=== PATIENT | female | born 1980 | race Caucasian/White ===

== ENCOUNTER 2017-09-19 01:54 | Emergency (ER) | payer SELFPAY ==
[2017-09-19 02:13] VITALS: RESP 17; O2SAT 98
[2017-09-19] MEDS ORDERED: Sodium Chloride 0.9% 1,000 ML IV STA (02:15)
--- NOTE | 2017-09-19 02:19 | ED PDOC ---
Arrival/HPI - General Chief Complaint: Dizziness/Lightheaded Time Seen by Provider: 09/19/17 01:56 Historian: Patient - History of Present Illness Narrative History of Present Illness (Text): 09/19/17 02:15 Tara Ramirez is a 36 year old female, whose past medical history includes anemia on Feosol, who presents to the Emergency department complaining of vomiting. Patient states she has been experiencing abdominal cramping with associated nausea, vomiting, and diarrhea, since yesterday evening. Patient states she took Zofran, but denies any significant relief. Patient denies any fever, chills, chest pain, shortness of breath, urinary symptoms, back pain, neck pain, headache, dizziness, or any other complaints. Time/Duration: Other (yesterday) Symptom Onset: Gradual Symptom Course: Unchanged Activities at Onset: Light Context: Home Past Medical History - Provider Review Nursing Documentation Reviewed: Yes - Past Medical History Past Medical History: No Previous - Cardiac Hx Cardiac Disorders: No - Pulmonary Hx Respiratory Disorders: No - Neurological Hx Neurological Disorder: No - HEENT Hx HEENT Disorder: No - Renal Hx Renal Disorder: No - Endocrine/Metabolic Hx Endocrine Disorders: No Hx Diabetes Mellitus Type 2: Yes - Hematological/Oncological Hx Anemia: Yes - Integumentary Hx Dermatological Disorder: No - Musculoskeletal/Rheumatological Hx Musculoskeletal Disorders: No Hx Falls: No - Gastrointestinal Hx Gastrointestinal Disorders: No - Genitourinary/Gynecological Hx Genitourinary Disorders: No - Psychiatric Hx Psychophysiologic Disorder: No Hx Emotional Abuse: No Hx Physical Abuse: No Hx Substance Use: No - Past Surgical History Past Surgical History: No Previous - Anesthesia Hx Anesthesia: No - Suicidal Assessment Feels Threatened In Home Enviroment: No Family/Social History - Physician Review Nursing Documentation Reviewed: Yes Family/Social History: Unknown Family HX Smoking Status: Never Smoked Hx Alcohol Use: No Hx Substance Use: No Hx Substance Use Treatment: No Allergies/Home Meds Allergies/Adverse Reactions: Allergies iv contrast Allergy (Uncoded 09/19/17 02:07) ANAPHYLAXIS Home Medications: Home Meds Medication Instructions Recorded Confirmed Ferrous Sulfate [Feosol] 325 mg PO DAILY 09/19/17 09/19/17 Multivit/Iron/Folic Acid/Hb179 1 tab PO DAILY 09/19/17 09/19/17 [[facility]] Review of Systems - Physician Review All systems were reviewed & negative as marked: Yes - Review of Systems Constitutional: Normal. absent: Fevers Eyes: Normal ENT: Normal Respiratory: Normal. absent: SOB, Cough Cardiovascular: Normal. absent: Chest Pain Gastrointestinal: Abdominal Pain, Diarrhea, Nausea, Vomiting Genitourinary Female: Normal. absent: Dysuria, Frequency, Hematuria, Urine Output Changes Musculoskeletal: Normal. absent: Back Pain, Neck Pain Skin: Normal. absent: Rash Neurological: Normal. absent: Headache, Dizziness Endocrine: Normal Hemo/Lymphatic: Normal Psychiatric: Normal Physical Exam Vital Signs Reviewed: Yes Vital Signs Temp Pulse Resp BP Pulse Ox 09/19/17 07:07 98.2 F 85 17 110/66 98 09/19/17 06:15 70 17 105/72 98 09/19/17 04:32 78 17 109/75 98 09/19/17 02:13 85 17 104/60 98 09/19/17 02:08 97.5 F L 83 18 104/60 100 Temperature: Afebrile Blood Pressure: Normal Pulse: Regular Respiratory Rate: Normal Appearance: Positive for: Well-Appearing, Non-Toxic, Comfortable Pain Distress: None Mental Status: Positive for: Alert and Oriented X 3 - Systems Exam Head: Present: Atraumatic, Normocephalic Pupils: Present: PERRL Extroacular Muscles: Present: EOMI Conjunctiva: Present: Normal Mouth: Present: Moist Mucous Membranes Neck: Present: Normal Range of Motion Respiratory/Chest: Present: Clear to Auscultation, Good Air Exchange. No: Respiratory Distress, Accessory Muscle Use Cardiovascular: Present: Regular Rate and Rhythm, Normal S1, S2. No: Murmurs Abdomen: Present: Normal Bowel Sounds. No: Tenderness, Distention, Peritoneal Signs Back: Present: Normal Inspection Upper Extremity: Present: Normal Inspection. No: Cyanosis, Edema Lower Extremity: Present: Normal Inspection. No: Edema Neurological: Present: GCS=15, CN II-XII Intact, Speech Normal Skin: Present: Warm, Dry, Normal Color. No: Rashes Psychiatric: Present: Alert, Oriented x 3, Normal Insight, Normal Concentration Medical Decision Making ED Course and Treatment: 09/19/17 02:15 Impression: 36 year old female complaining of abdominal cramping, nausea, vomiting, and diarrhea. Differential Diagnosis included but are not limited to: Plan: -- Labs, lipase -- Urinalysis -- IV fluids -- Zofran -- Reassess and disposition Progress Notes: - Lab Interpretations Lab Results: 09/19/17 02:10 09/19/17 02:10 Lab Results 09/19/17 03:43: Urine Color Red, Urine Appearance Cloudy, Urine pH 7.0, Ur Specific [place] 1.020, Urine Protein 100 H, Urine Glucose (UA) Negative, Urine Ketones Trace H, Urine Blood Large H, Urine Nitrate Negative, Urine Bilirubin Negative, Urine Urobilinogen 1.0 H, Ur Leukocyte Esterase Trace H, Urine RBC Tntc, Urine WBC 0 - 2, Ur Epithelial Cells 0 - 2, Urine Bacteria Rare 09/19/17 02:10: Sodium 140, Potassium 4.5, Chloride 104, Carbon Dioxide 26, Anion Gap 15, BUN 19, Creatinine 1.0, Est GFR ( Amer) > 60, Est GFR (Non- Af Amer) > 60, Random Glucose 170 H, Calcium 9.1, Total Bilirubin 0.7, AST 56 H , ALT 73 H, Alkaline Phosphatase 92, Total Protein 7.9, Albumin 4.4, Globulin 3.4, Albumin/Globulin Ratio 1.3, Lipase 60 09/19/17 02:10: PT 12.3, INR 1.13 H, APTT 26.7 09/19/17 02:10: WBC 8.8, RBC 4.48, Hgb 13.3, Hct 40.2, MCV 89.7, MCH 29.7, MCHC 33.1, RDW 13.1, Plt Count 197, MPV 12.1 H, Gran % 85.3 H, Lymph % (Auto) 8.3 L, Yates % (Auto) 5.5, Eos % (Auto) 0.8 L, Baso % (Auto) 0.1, Gran # 7.51 H, Lymph # 0.7 L, Yates # 0.5, Eos # 0.1, Baso # 0.01 - Medication Orders Current Medication Orders: Discontinued Medications Sodium Chloride (Sodium Chloride 0.9%) 1,000 mls @ 100 mls/hr IV .Q10H STA Stop: 09/19/17 12:14 Last Admin: 09/19/17 02:25 Dose: 100 mls/hr eMAR Start Stop Document 09/19/17 02:25 IT (Rec: 09/19/17 02:26 IT [facility] [id number]) Intravenous Solution Start Date 09/19/17 Start Time 02:26 Ketorolac Tromethamine (Toradol) 30 mg IVP ONCE ONE Stop: 09/19/17 03:42 Last Admin: 09/19/17 03:53 Dose: 30 mg MAR Pain Assessment Document 09/19/17 03:53 IT (Rec: 09/19/17 03:53 IT [facility] [id number]) Pain Reassessment Is this a pain reassessment? No Sleep Is patient sleeping during reassessment? No Presence of Pain Presence of Pain Yes Pain Scale Used Pain Scale Used Numeric Location Upper or Lower Upper Pain Location Body Site Abdomen IVP Administration Document 09/19/17 03:53 IT (Rec: 09/19/17 03:53 IT [facility] [id number]) Charges for Administration # of IVP Administrations 1 Ondansetron HCl (Zofran Inj) 4 mg IVP STAT STA Stop: 09/19/17 02:16 Last Admin: 09/19/17 02:27 Dose: 4 mg IVP Administration Document 09/19/17 02:27 IT (Rec: 09/19/17 02:27 IT [facility] [id number]) Charges for Administration # of IVP Administrations 1 Pantoprazole Sodium (Protonix Inj) 40 mg IVP ONCE STA Stop: 09/19/17 03:42 Last Admin: 09/19/17 03:53 Dose: 40 mg IVP Administration Document 09/19/17 03:53 IT (Rec: 09/19/17 03:53 IT [facility] [id number]) Charges for Administration # of IVP Administrations 1 - Scribe Statement The provider has reviewed the documentation as recorded by the Ana Anderson Provider Scribe Attestation: All medical record entries made by the Scribe were at my direction and personally dictated by me. I have reviewed the chart and agree that the record accurately reflects my personal performance of the history, physical exam, medical decision making, and the department course for this patient. I have also personally directed, reviewed, and agree with the discharge instructions and disposition. Disposition/Present on Arrival - Present on Arrival Any Indicators Present on Arrival: No History of DVT/PE: No History of Uncontrolled Diabetes: No Urinary Catheter: No History of Decub. Ulcer: No History Surgical Site Infection Following: None - Disposition Have Diagnosis and Disposition been Completed?: Yes Diagnosis: Gastroenteritis Disposition: HOME/ ROUTINE Disposition Time: 06:30 Condition: IMPROVED Discharge Instructions (ExitCare): Gastroenteritis (ED) Prescriptions: Ondansetron [Zofran Odt] 8 mg PO TID PRN #10 odt PRN Reason: Nausea/Vomiting Referrals: PCP,NO [Primary Care Provider] - Follow up with primary Forms: [employer] ([place])
[2017-09-19 02:35] VITALS: BMI 27.3
[2017-09-19 02:54] LABS: BASO # 0.01 K/mm3 (0.0-2.0); BASO % 0.1 % (0.0-3.0); EOS # 0.1 (0.0-0.7); EOS % 0.8 % (1.5-5.0); GRAN # 7.51 (1.4-6.5); GRAN % 85.3 % (50.0-68.0); HEMATOCRIT 40.2 % (36.0-48.0); LYMPH # 0.7 (1.2-3.4); LYMPH % 8.3 % (22.0-35.0); MEAN CELL VOLUME 89.7 fl (80.0-105.0); MEAN CORPUSCULAR HEMOGLOBIN 29.7 pg (25.0-35.0); MEAN CORPUSCULAR HGB CONC 33.1 g/dl (31.0-37.0); MEAN PLATELET VOLUME 12.1 fl (7.0-11.0); MONO # 0.5 (0.1-0.6); MONO % 5.5 % (1.0-6.0); RED CELL DISTRIBUTION WIDTH 13.1 % (11.5-14.5); WHITE BLOOD COUNT 8.8 10^3/ul (4.5-11.0)
[2017-09-19 02:57] LABS: ALB/GLOB RATIO 1.3 (1.1-1.8); ALKALINE PHOSPHATASE 92 U/L (38-126); ALT/SGPT 73 U/L (7-56); AST/SGOT 56 U/L (14-36); BILIRUBIN,TOTAL 0.7 mg/dL (0.2-1.3); BLOOD UREA NITROGEN 19 mg/dL (7-21); CALCIUM 9.1 mg/dL (8.4-10.5); CARBON DIOXIDE 26 mmol/L (21-33); CHLORIDE 104 mmol/L (98-107); GFR AFRICAN-AMERICAN > 60; GLUCOSE,RANDOM 170 mg/dL (70-110); LIPASE 60 U/L (23-300); POTASSIUM 4.5 mmol/L (3.6-5.0); SODIUM 140 mmol/L (132-148); TOTAL PROTEIN 7.9 g/dL (5.8-8.3)
[2017-09-19 02:59] LABS: INR 1.13 (0.93-1.08); PARTIAL THROMBOPLASTIN TIME 26.7 Seconds (25.1-36.5)
[2017-09-19 03:59] LABS: URINE BILIRUBIN NEGATIVE (NEGATIVE); URINE BLOOD LARGE (NEGATIVE); URINE GLUCOSE (UA) NEGATIVE (NEGATIVE); URINE KETONE TRACE mg/dL (NEGATIVE); URINE LEUKOCYTE ESTERASE TRACE Leu/uL (NEGATIVE); URINE PROTEIN 100 mg/dL (<30 mg/dL)
[2017-09-19 04:12] LABS: URINE APPEARANCE CLOUDY (CLEAR); URINE COLOR RED (YELLOW)
[2017-09-19 04:16] LABS: URINE BACTERIA RARE (NEG); URINE EPITHELIAL CELLS 0 - 2 /hpf (0-5); URINE RBC TNTC /hpf (0-2); URINE WBC 0 - 2 /hpf (0-6)
[2017-09-19 07:08] VITALS: BP 110/66; PULSE 85; TEMP 98.2
== END 2017-09-19 07:08 | disposition home or self-care (01) ==
LOC: ED 01:54
DX: K52.9 Noninfective gastroenteritis and colitis, unspecified (principal)
CPT/HCPCS: 80053; 81001; 83690; 85025; 85610; 85730; 87086; 96374; 96375; 99285; C9113; J1885; J2405; J7040